=== PATIENT | male | born 1985 | race Two or more races ===

== ENCOUNTER 2019-02-07 04:21 | Emergency (ER) | payer SELFPAY ==
[2019-02-07] MEDS ORDERED: LIDOCAINE 1% HCL (LOCAL ANESTH.) INJ 20ML MDV IJ ONE (08:15)
[2019-02-07] MEDS ORDERED: BACITRACIN TOP OINT 1 UD PKG TOP ONE (08:15)
== END 2019-02-07 09:17 | disposition home or self-care (01) ==
LOC: ER 04:21
DX: S51.812A Laceration without foreign body of left forearm, initial encounter (principal); F17.210 Nicotine dependence, cigarettes, uncomplicated; W25.XXXA Contact with sharp glass, initial encounter; Y93.89 Activity, other specified; Y92.89 Other specified places as the place of occurrence of the external cause; Y99.8 Other external cause status
CPT/HCPCS: 12004; 99283; J2001